=== PATIENT | male | born 1975 | race Two or more races ===

== ENCOUNTER 2021-07-18 18:39 | Emergency (ER) | payer OTHER ==
[~2021-07-18] VITALS: Ht 172.7 cm; Wt 127.0 kg
[2021-07-18 19:30] VITALS: BP 123/70
== END 2021-07-18 21:53 | disposition left against medical advice (07) ==
LOC: EDBD 18:39 → ER 18:46
DX: M54.2 Cervicalgia (principal); R10.9 Unspecified abdominal pain; Z53.21 Procedure and treatment not carried out due to patient leaving prior to being seen by health care provider; V43.52XA Car driver injured in collision with other type car in traffic accident, initial encounter; Y93.89 Activity, other specified; Y92.410 Unspecified street and highway as the place of occurrence of the external cause; Y99.8 Other external cause status
CPT/HCPCS: 70450; 71250; 72125; 74176